=== PATIENT | female | born 1990 | race Caucasian/White ===

== ENCOUNTER 2025-03-29 16:35 | Inpatient (IN) | payer BC ==
[~2025-03-29] VITALS: Ht 172.7 cm; Wt 59.0 kg
[2025-03-29 16:37] VITALS: BP 122/34
[2025-03-29] MEDS ORDERED: CEFEPIME HCL 1 G VIAL ONE (17:03)
[2025-03-29] MEDS ORDERED: VANCOMYCIN IV 200 ML ONE (17:03)
[2025-03-29] MEDS: CEFEPIME (MAXEPIME) 1 G in IV DEXTROSE 5% 50 ML IV ONE (17:05)
[2025-03-29 17:12] LABS: PLATELET COUNT (AUTO) 260 K/uL (179-408); RED BLOOD CELL COUNT(AUTO) 4.61 MIL/uL (3.63-4.92); RED CELL DISTRIBUTION WIDTH 12.9 % (12.3-17.7); WHITE BLOOD COUNT (AUTO) 7.7 K/uL (3.8-11.8)
[2025-03-29 17:17] LABS: CREATININE 0.6 mg/dL (0.6-1.3); SODIUM SERUM 139.0 mmol/L (136-145); UREA NITROGEN, BLOOD 13.0 mg/dL (7-18)
[2025-03-29] MEDS: VANCOMYCIN IV 1,000 MG in IV DEXTROSE 5% 250 ML IV ONE (17:25)
[2025-03-29 18:28] VITALS: BP 104/65; TEMP 97.6; O2SAT 99
[2025-03-29] MEDS ORDERED: SULF1TAB48 PO (19:18)
[2025-03-29] MEDS ORDERED: LEVO-43 PO (19:18)
[2025-03-29] MEDS ORDERED: CLIN-188 PO (19:19)
[2025-03-29] MEDS ORDERED: KETO15CR2 EA NOSTRIL (19:20)
[2025-03-29] MEDS ORDERED: CIPR-489 EA NOSTRIL (19:22)
[2025-03-29] MEDS ORDERED: GENTAMYCIN EA NOSTRIL (19:23)
[2025-03-29] MEDS ORDERED: MUPI22OI2 EA NOSTRIL (19:24)
[2025-03-29 19:50] VITALS: BP 90/38; TEMP 98.1; O2SAT 99
[2025-03-29] MEDS ORDERED: HYDROCODONE/APAP 5-325MG TABLET PO PRN (20:00)
[2025-03-29] MEDS ORDERED: TEMAZEPAM 15 MG CAPSULE PO PRN (20:00)
[2025-03-29] MEDS ORDERED: ONDANSETRON 4 MG/2 ML VIAL IV PRN (20:00)
[2025-03-29] MEDS ORDERED: ACETAMINOPHEN 325 MG TABLET PO PRN (20:00)
[2025-03-29] MEDS ORDERED: MAGNESIUM HYDROXIDE 30 ML LIQUID UDC PO PRN (20:00)
[2025-03-29] MEDS ORDERED: FLUCONAZOLE 200 MG/100 ML PIGGYBACK ONE (20:46)
[2025-03-29] MEDS ORDERED: PIPERACILLIN/TAZOBACTAM/D5W 100 ML IV ONE (20:46)
[2025-03-29] MEDS ORDERED: IV 0.9% SODIUM CHLORID+ 20 KCL 1,000 ML ONE (20:47)
[2025-03-29] MEDS: ACIDOPHILUS/BULGARICUS CHEW TAB PO SCH (20:55)
[2025-03-29] MEDS: FLUCONAZOLE 200 MG/NS 100ML IV 100 MG in PREMIXED 1 EACH IV SCH (20:55)
[2025-03-29] MEDS: POTASSIUM CHLORIDE 20 MEQ in IV NS 1000 ML 1,000 ML IV PRN (21:12)
[2025-03-30] MEDS: PIPERACILLIN SODIUM/TAZOBACTAM 3.375 G in IV DEXTROSE 5% 50 ML IV ONE (01:15)
[2025-03-30 05:58] VITALS: BP 97/35; TEMP 97.7; O2SAT 97
[2025-03-30] MEDS: PANTOPRAZOLE SODIUM 40 MG TABLET.DR PO SCH (06:42)
[2025-03-30 07:33] LABS: PLATELET COUNT (AUTO) 227 K/uL (179-408); RED BLOOD CELL COUNT(AUTO) 4.18 MIL/uL (3.63-4.92); RED CELL DISTRIBUTION WIDTH 12.8 % (12.3-17.7); WHITE BLOOD COUNT (AUTO) 5.8 K/uL (3.8-11.8)
[2025-03-30 07:46] LABS: ASPARTATE AMINOTRANSFERASE 13.0 U/L (15-37); CREATININE 0.6 mg/dL (0.6-1.3); SODIUM SERUM 142.0 mmol/L (136-145); TOTAL PROTEIN, SERUM 6.6 g/dL (6.4-8.2); UREA NITROGEN, BLOOD 12.0 mg/dL (7-18)
[2025-03-30] MEDS: VANCOMYCIN IV 1,000 MG in IV DEXTROSE 5% 250 ML IV SCH (09:35)
[2025-03-30 11:40] VITALS: BP 87/52; TEMP 97.5; O2SAT 100
[2025-03-30] MEDS ORDERED: TEMAZEPAM 7.5 MG CAPSULE PO PRN (14:00)
[2025-03-30] MEDS: PIPERACILLIN SODIUM/TAZOBACTAM 3.375 G in IV DEXTROSE 5% 50 ML IV SCH (15:16)
[2025-03-30 20:43] VITALS: BP 93/51; TEMP 97.7
[2025-03-31 06:16] VITALS: BP 90/52; TEMP 97.8
[2025-03-31 11:53] VITALS: BP 98/55; TEMP 97.7; O2SAT 100
[2025-03-31] MEDS ORDERED: FAMO10TA41 PO (14:45)
[2025-03-31] MEDS ORDERED: Acidophilus/Bulgaricus PO (14:45)
[2025-03-31] MEDS ORDERED: DOXY-226 PO (14:45)
[2025-03-31 16:00] VITALS: BP 84/37; TEMP 97.8; O2SAT 98
== END 2025-03-31 16:25 | disposition home or self-care (01) | DRG 863 ==
LOC: ER 16:41 → MEDSURG3 17:40
PROVIDERS: ADMIT Internal Medicine; ATTEND Internal Medicine
DX: T81.49XA Infection following a procedure, other surgical site, initial encounter (principal); B99.8 Other infectious disease; Z94.89 Other transplanted organ and tissue status; J34.89 Other specified disorders of nose and nasal sinuses; E87.6 Hypokalemia
CPT/HCPCS: 36415; 83735; 84100; 85025; 87040; 87070; A4663; G0378; J0692; J1450; J2543; J3373; J3480; J7040; J7050